=== PATIENT | male | born 1955 | race Caucasian/White ===

== ENCOUNTER → 2019-09-21 | Outpatient (CLI) | payer OTHER ==
--- NOTE | 2019-09-21 09:47 | CT ---
EXAM DESCRIPTION: Abdoment/Pelvis w/o Contrast CLINICAL HISTORY: 64 years Male, LEFT LOWER QUADRANT PAIN COMPARISON: None available. TECHNIQUE: Contiguous 3 mm axial images were obtained from the lung bases to the level of proximal femora without the administration of intravenous or oral contrast. Sagittal and coronal reconstructions were reviewed. This exam was performed according to our departmental dose-optimization program, which includes automated exposure control, adjustment of the mA and/or kV according to patient size and/or use of iterative reconstruction technique. FINDINGS: The visualized lower thorax appears grossly unremarkable. Limited evaluation of the solid abdominal organs due to lack of intravenous contrast. The liver appears grossly unremarkable with no intrahepatic duct dilatation. The gallbladder, spleen, pancreas and both adrenal glands appear grossly unremarkable. Both kidneys appear grossly unremarkable with no evidence of nephrolithiasis, hydronephrosis, hydroureter are perinephric fluid collections. The distal esophagus and the stomach appear grossly unremarkable. The small and large bowel loops appear grossly unremarkable with no abnormal dilatation or wall thickening. Scattered diverticula are noted throughout the colon with no evidence of acute diverticulitis. The appendix is not visualized, however no surrounding inflammatory changes noted in the right lower quadrant. No free intraperitoneal air or fluid. No enlarged abdominal or retroperitoneal lymphadenopathy. The urinary bladder is moderately distended and appears grossly unremarkable. The prostrate and seminal vesicles appear grossly unremarkable. No free fluid in the pelvis. Review of the bone windows demonstrate no acute osseous abnormality. Multilevel degenerative changes of the thoracic spine noted with flowing anterior disc osteophytes. IMPRESSION: 1. No acute intra-abdominal process. Electronically signed by: Marcos Bo MD 09/21/2019 9:46 AM [employer]
== END ==
LOC: CT 08:03
PROVIDERS: ATTEND Family Medicine
DX: R10.32 Left lower quadrant pain (principal)

== ENCOUNTER → 2020-07-17 | Outpatient (CLI) | payer OTHER | LOC: GMAM 14:32 | PROVIDERS: ATTEND Family Medicine | DX: Z12.5 Encounter for screening for malignant neoplasm of prostate (principal); E55.9 Vitamin D deficiency, unspecified; E78.5 Hyperlipidemia, unspecified; I10 Essential (primary) hypertension ==